=== PATIENT | female | born 1960 | race Caucasian/White ===

== ENCOUNTER 2017-04-02 10:24 | Observation (INO) | payer OTHER ==
[2017-04-02] MEDS ORDERED: oxyCODONE/Acetamin 5/325 MG* TAB ONE (11:16)
[2017-04-02 11:17] LABS: Hematocrit 40 % (35-47); Hemoglobin 13.4 g/dl (12.0-16.0); Mean Corpuscular HGB Conc 33 g/dl (31-36); Mean Corpuscular Hemoglobin 31 pg (27-31); Mean Corpuscular Volume 92 fL (80-97); Mean Platelet Volume 10 um3 (7.4-10.4); Red Blood Count 4.38 10^6/ul (4.0-5.4); Red Cell Distribution Width 14 % (10.5-15); White Blood Count 5.3 10^3/ul (3.5-10.8)
[2017-04-02] MEDS ORDERED: Scopolamine 1.5 mg* PATCH ONE (11:17)
[2017-04-02] MEDS ORDERED: LORazepam TAB(*) 1 MG ONE (11:17)
[2017-04-02] MEDS ORDERED: fentaNYL* 50 MCG/ML 5 ML VIAL (250 MCG VIAL) ONE ×2 (11:48→13:47)
[2017-04-02] MEDS ORDERED: Midazolam* 1 MG/ML 5 ML VIAL (5 MG) ONE ×2 (11:48→13:47)
[2017-04-02] MEDS ORDERED: Ketorolac INJ* 30 MG/ML 1 ML VIAL ONE (11:48)
[2017-04-02] MEDS ORDERED: Flumazenil* 0.1 MG/ML 5 ML MDV ONE (11:48)
[2017-04-02] MEDS ORDERED: Naloxone* 0.4 MG/ML 1 ML VIAL ONE (11:48)
[2017-04-02] MEDS ORDERED: Lidocaine 1% INJ* 10 MG/ML 30 ML SDV ONE (11:49)
[2017-04-02] MEDS ORDERED: Ondansetron INJ* 2 MG/ML VIAL ONE (11:49)
[2017-04-02] MEDS ORDERED: Iodixanol* (CONTRAST) 320 MG/ML 100 ML SDV ONE (11:49)
[2017-04-02] MEDS ORDERED: nitroGLYCERIN DRIP* 250 ML ONE (11:49)
[2017-04-02] MEDS ORDERED: Heparin 2 UNITS/ML IVPREMIX* 2,000 ML IV ONE (11:49)
[2017-04-02] MEDS ORDERED: Iohexol 350 (CONTRAST) 200 ML MDV IV ONE (12:00)
[2017-04-02] MEDS ORDERED: Scopolamine 1.5 mg* PATCH TRANSDERM ONE (12:00)
[2017-04-02] MEDS ORDERED: Ibuprofen TAB* 800 MG PO ONE (12:00)
[2017-04-02] MEDS ORDERED: LORazepam TAB(*) 1 MG PO ONE (12:00)
[2017-04-02] MEDS ORDERED: oxyCODONE/Acetamin 5/325 MG* TAB PO ONE (12:00)
[2017-04-02] MEDS ORDERED: Clindamycin 900 MG IVPREMIX(* 900 MG/50 ML SDV IV ONE (12:00)
[2017-04-02] MEDS ORDERED: HYDROmorphone* 1 MG/ML 1 ML SYR ONE (14:38)
[2017-04-02] MEDS ORDERED: HYDROmorphone PCA* 20 MG/20 ML PCA.SYRING PCA SCH (16:00)
--- NOTE | 2017-04-02 16:12 | PN ---
Progress Note - Progress Note Date of Service: 04/02/17 SOAP: Subjective: Pain and nausea well controlled. Patient states she feels "a little sore" in her left pelvis. Denies nausea. No emesis. Objective: [] Selected Entries 04/02/17 04/02/17 15:47 15:48 Temperature 97.4 F Pulse Rate 69 Respiratory 16 Rate Blood Pressure 126/85 (mmHg) Blood Pressure 98 Mean Vital Signs groin site soft Comment , pedal pulses are present. O2 Sat by Pulse 97 Oximetry NAD, Sleeping, but arousable to voice Abdomen and pelvis are soft, minimally tender to palpation. 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 Plan: 1. Standard Interventional Radiology post UFE pain and nausea control. 2. Strict bedrest until 1900 hours with RLE straight. 3. Groin, pulse and vitals checks according to protocol. 4. Outpatient medication regimen will include: * Scopolamine 1.5 mg transdermal to mastoid process: Remove current patch on 04/05/17 at 0900 hours and replace with new patch. (with one refill) * Zofran 4 mg PO Q 6 hours x 7 days, dispense #30 with one refill. * Toradol 10 mg PO Q 6 hours x 3 days, dispense # 15 with one refill. * Ibuprofen 800 mg PO Q 6 hours x 3 days: start after 3 days of Toradol. DO NOT MIX IBUPROFEN AND TORADOL * Percocet 5/325, take 1 or 2 tablets PO Q 6 hours PRN for breakthrough pain x 5 days, dispense #40. * Smooth Move Tea, purchase at [employer] and drink daily to control constipation.
[2017-04-02] MEDS: Ondansetron INJ* 2 MG/ML VIAL IV SCH (21:11)
[2017-04-02] MEDS: Ketorolac INJ* 15 MG/ML 1 ML VIAL IV PUSH SCH (22:08)
--- NOTE | 2017-04-02 23:27 | HP ---
CC: Dr. Thuy Armando; Dr. Yury Thao * HISTORY AND PHYSICAL: DATE OF ADMISSION: 04/02/17 PRIMARY CARE PHYSICIAN: Dr. Thuy Armando. ATTENDING PHYSICIAN: Dr. Yohana Alvarez * (dictated by Emmanuelle Nelson NP). CHIEF COMPLAINT: Uterine fibroids. HISTORY OF PRESENT ILLNESS: Ms. Ovalle is a 57-year-old female with past medical history significant for low back pain and uterine fibroids, who presented initially for consultation with Dr. Yury Thao for Interventional Radiology for a uterine fibroid embolization, who further reported that she was scheduled for uterine fibroid embolization 10 to 15 years ago, but the procedure was cancelled and she had not pursued rescheduling the procedure. The patient complained of abdominal discomfort exacerbated by pelvic pain and physical activity. She also experienced pelvic and low back pain after jogging. In addition, she reported pain when she first woke up in the morning in her pelvis and low back. While sitting for long periods of time, the patient experienced numbness in her lower extremities more severely affecting the left leg than the right leg. The patient underwent a pelvic ultrasound on February 23 showing at least 5 uterine fibroids with the largest measuring 12 x 11 x 11 cm. The patient presented today to [facility] for an elective uterine fibroid embolization with Dr. Yury Thao. Prior to the patient's hospitalization, she states that she has been in her usual health with the exception of pelvic and lower back pain. She denies any recent fever, chills, shortness of breath, chest pain, nausea, vomiting, or diarrhea, or urinary symptoms. PAST MEDICAL HISTORY: 1. Fasciculation syndrome. 2. Obesity. 3. Low back pain. 4. Leiomyoma of the uterus. 5. Remote history of concussion. PAST SURGICAL HISTORY: 1. Status post excision of a sebaceous cyst from the shoulder in 2013. 2. Status post jaw surgery. 3. Status post hand surgery at age 29. HOME MEDICATIONS: Include, multivitamin 1 tablet oral daily. ALLERGIES: IBUPROFEN causes GI upset. FAMILY HISTORY: The patient denies any family history of coronary artery disease or diabetes mellitus. The patient's father passed from lung cancer and the patient's mother passed from colon cancer. SOCIAL HISTORY: The patient denies tobacco use. She occasionally consumes alcohol. She denies recreational drug use. 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 Her daughter, Kelly Mason, will be her surrogate decision maker in the event she is unable to make decisions for herself. REVIEW OF SYSTEMS: I performed a 14-point review of systems. All the pertinent positives and negatives are mentioned in the history of present illness. The remaining review of systems are negative. PHYSICAL EXAMINATION GENERAL APPEARANCE: The patient is sleeping but easily arousable, pleasant, and appears to be in no acute distress. VITAL SIGNS: Temperature 98.0, heart rate 71, respiratory rate 16, O2 sat 98% on room air, blood pressure 130/78. HEENT: Normocephalic, atraumatic. Pupils are equal and reactive to light. Extraocular movements are intact. RESPIRATORY: There is no accessory muscle use and lungs are clear to auscultation bilaterally. CARDIOVASCULAR: Regular rate and rhythm. S1 and S2 present. There are no murmurs, rubs or gallops heard. ABDOMEN: Soft, nontender, nondistended. There are bowel sounds present x4. EXTREMITIES: There is no lower extremity edema. DP and PT pulses are 2+ and symmetric. MUSCULOSKELETAL: There is no clubbing or cyanosis noted. The patient exhibits good strength in all extremities. NEUROLOGIC: The patient is drowsy, but responds to voice, oriented x4. Cranial nerves II through XII are grossly intact. PSYCHOLOGICAL: The patient is calm and cooperative. SKIN: There are no rashes or abnormalities. The incision to the right groin is clean, dry and intact. The dressing to the right groin is clean, dry and intact. DIAGNOSTIC STUDIES/LABORATORY DATA: Preop labs from 03/30/17 show sodium 140, potassium 4.3, chloride 103, CO2 32, BUN 17, creatinine 0.82, and glucose 91. CBC from today shows white blood cell count 5.3, hemoglobin 13.4, hematocrit 40 , and platelet count 201. IMPRESSION: Ms. Ovalle is a 57-year-old female with past medical history significant for low back pain, pelvis pain, and leiomyoma of the uterus, who presented today for an elective uterine fibroid embolization with Dr. Yury Thao. She will be admitted as an observation. ASSESSMENT AND PLAN: 1. Uterine leiomyoma. The patient is status post uterine fibroid embolization today with Dr. Thao. Management per Dr. Thao. The patient will be given pain control via a Dilaudid [employer] and transitioned to oral pain medications. The patient will also be given antiemetics. She will be maintained on bed rest with her right lower extremity straight until 7 o'clock tonight, at which time she will be able to get up. She will have her urinary catheter removed at 1999 today. 2. Fluids, electrolytes, and nutrition. The patient will be on a clear liquid , advance as tolerated to regular diet. She will get IV hydration overnight. 3. Code status. Full code. 4. DVT prophylaxis. The patient is at moderate risk and will have SCDs. 5. Disposition. Observation. TIME SPENT: The time spent for this admission was approximately 60 minutes, greater than half of that was spent with the patient discussing medications, past medical history, and the events leading up to her arrival today and performing a physical examination. The case has been reviewed with the attending, Dr. Alvarez, who agrees with the plan of care. Reviewed by TAYLOR BURTON 04/03/17 1219 [id number]/[facility] #: [id number] JIM
[2017-04-03] MEDS: Ketorolac INJ* 15 MG/ML 1 ML VIAL IV PUSH SCH ×2 (03:48→09:39)
[2017-04-03] MEDS: Ondansetron INJ* 2 MG/ML VIAL IV SCH ×2 (03:49→09:39)
[2017-04-03] MEDS ORDERED: PROCHLORPERAZINE INJ 5 MG/ML 2 ML VIAL IV ONE (08:35)
[2017-04-03] MEDS ORDERED: Prenatal Vitamin TAB PO SCH (09:00)
[2017-04-03] MEDS ORDERED: Ondansetron TAB* 4 MG ONE (09:24)
[2017-04-03 09:42] VITALS: BP 134/87
[2017-04-03] MEDS ORDERED: Ketorolac TAB * 10 MG TAB PO SCH (10:00)
[2017-04-03] MEDS ORDERED: Ondansetron TAB* 4 MG PO SCH (10:00)
--- NOTE | 2017-04-03 11:30 | PN ---
Progress Note - Progress Note Date of Service: 04/03/17 SOAP: Subjective: Pain controlled. Episode of emesis this a.m. after drinking coffee. Has subsequently taken sips of water, crackers and yogurt without emesis. Wants to go home. + void. Ambulated with daughter around unit. Objective: [] Selected Entries 04/03/17 04/03/17 07:14 09:42 Temperature 98.1 F Temperature Oral Source Pulse Rate 95 Respiratory 16 Rate Blood Pressure 134/87 (mmHg) Blood Pressure 97 Mean O2 Sat by Pulse 97 Oximetry NAD, AAO x 3 Abdomen and pelvis are soft, minimally tender to palpation. Uterine fundus palpable ~10 cm above umbilicus Right CF arteriotomy site is soft, nontender, small area of ecchyomsis Dressing is CDI. Dressing changed at bedside. 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 Plan: Outpatient medication regimen will include: * Scopolamine 1.5 mg transdermal to mastoid process: Remove current patch on 04/05/17 at 0900 hours and replace with new patch. (with one refill) * Compazine 4 mg PO Q 6 hours x 7 days, dispense #30 with one refill. * Toradol 10 mg PO Q 6 hours x 3 days, dispense # 15 with one refill. * Ibuprofen 800 mg PO Q 6 hours x 3 days: start after 3 days of Toradol. DO NOT MIX IBUPROFEN AND TORADOL * Oxycodone 10 mg tablets take 1 PO Q 6 hours PRN for breakthrough pain x 5 days , dispense #30. * Smooth Move Tea, drink daily to control constipation.
--- NOTE | 2017-04-03 13:23 | PN ---
Subjective Date of Service: 04/03/17 Interval History: Ms. Ovalle states that she is feeling well this afternoon. She had one bout of nausea of drinking coffee this morning but has tolerated lunch well. She denies chest pain, SOB, nausea. She has minimal pain in her lower abdomen and in her back. Objective Active Medications: Lactated Ringer's (Lactated Ringers 1000 Ml Bag*) 1,000 mls @ 125 mls/hr IV PER RATE [facility] Ketorolac Tromethamine (Toradol Tab *) 10 mg PO Q6H [facility] Multivitamins ( Vitamin Tab*) 1 tab PO DAILY [facility] Ondansetron HCl (Zofran Tab*) 4 mg PO Q6H [facility] Pharmacy Profile Note (Scopolomine Patch Remove*) 1 note PATCH OFF ONCE ONE Vital Signs 04/02/17 04/02/17 04/02/17 15:23 15:28 15:32 Temperature 98.3 F Pulse Rate 72 71 Respiratory 16 16 Rate Blood Pressure 112/73 130/78 (mmHg) O2 Sat by Pulse 93 Oximetry 04/02/17 04/02/17 04/02/17 15:34 15:37 15:42 Temperature 98 F Pulse Rate 71 71 Respiratory 16 16 16 Rate Blood Pressure 130/78 126/85 (mmHg) O2 Sat by Pulse 90 95 Oximetry 04/02/17 04/02/17 04/02/17 15:47 16:06 16:08 Temperature 97.4 F 96.4 F Pulse Rate 69 68 Respiratory 16 16 16 Rate Blood Pressure 126/85 137/85 (mmHg) O2 Sat by Pulse 97 95 98 Oximetry 04/02/17 04/02/17 04/02/17 16:28 16:33 16:36 Temperature 96.8 F Pulse Rate 72 72 Respiratory 14 14 Rate Blood Pressure 134/83 134/83 (mmHg) O2 Sat by Pulse 97 97 Oximetry 04/02/17 04/02/17 04/02/17 16:37 16:46 17:01 Temperature 96.8 F Pulse Rate Respiratory 14 14 14 Rate Blood Pressure (mmHg) O2 Sat by Pulse 97 Oximetry 04/02/17 04/02/17 04/02/17 17:29 17:53 17:57 Temperature 97.1 F 97.1 F Pulse Rate 75 78 Respiratory 16 16 16 Rate Blood Pressure 128/78 134/83 (mmHg) O2 Sat by Pulse 96 98 96 Oximetry 04/02/17 04/02/17 04/02/17 18:30 18:42 18:52 Temperature 97.4 F Pulse Rate 74 81 Respiratory 16 16 16 Rate Blood Pressure 134/83 139/85 (mmHg) O2 Sat by Pulse 96 93 93 Oximetry 04/02/17 04/02/17 04/02/17 19:59 20:45 21:08 Temperature 97.2 F 98.1 F Pulse Rate 83 83 Respiratory 16 16 Rate Blood Pressure 151/91 131/75 (mmHg) O2 Sat by Pulse 99 96 93 Oximetry 04/02/17 04/02/17 04/02/17 22:08 22:11 23:18 Temperature 97.3 F 97.5 F Pulse Rate 84 88 Respiratory 16 16 14 Rate Blood Pressure 148/91 127/79 (mmHg) O2 Sat by Pulse 99 100 Oximetry 04/03/17 04/03/17 04/03/17 01:42 04:18 06:42 Temperature 97.8 F Pulse Rate 88 Respiratory 16 16 16 Rate Blood Pressure 134/74 (mmHg) O2 Sat by Pulse 96 96 99 Oximetry 04/03/17 04/03/17 07:14 09:42 Temperature 98.1 F Pulse Rate 95 Respiratory 15 16 Rate Blood Pressure 134/87 (mmHg) O2 Sat by Pulse 97 Oximetry Oxygen Devices in Use Now: None Appearance: Female lying in bed in NAD Eyes: No Scleral Icterus Ears/Nose/Mouth/Throat: Mucous Membranes Moist Neck: Trachea Midline Respiratory: Symmetrical Chest Expansion and Respiratory Effort, Clear to Auscultation Cardiovascular: NL Sounds; No Murmurs; No JVD, No Edema Abdominal: NL Sounds; No Tenderness; No Distention Lymphatic: No Cervical Adenopathy Extremities: No Edema Skin: No Rash or Ulcers Neurological: Alert and Oriented x 3, NL Muscle Strength and Tone Nutrition: Taking PO's Result Diagrams: 04/02/17 11:00 Assess/Plan/Problems-Billing Assessment: Ms. Ovalle is a 57 yo female with a PMH of uterine leiomyoma who was admitted on 04/02/17 after a uterine fibroid artery embolization with Dr. Thao. - Patient Problems (1) Uterine fibroid Comment: - S/P uterine fibroid artery embolization. - Doing well today, tolerating oral intake and resting comfortably, - Management per Dr. Thao with prescriptions from pain meds and anti-emetics. Status and Disposition: OBV. Discharge to home.
--- NOTE | 2017-04-03 14:10 | DS ---
CC: Dr. Thuy Armando * DISCHARGE SUMMARY: DATE OF ADMISSION: 04/02/17 DATE OF DISCHARGE: 04/03/17 PRIMARY CARE PHYSICIAN: Dr. Thuy Armando. ATTENDING PHYSICIAN: Dr. Benoit Jimenez * (dictation provided by Leonie Jones NP ) PRIMARY DIAGNOSIS: Uterine fibroids, status post uterine fibroid artery embolization. SECONDARY DIAGNOSES: 1. Fasciculation syndrome. 2. Obesity. 3. Low back pain. 4. Leiomyoma of the uterus. 5. Remote history of concussion. PAST SURGICAL HISTORY: 1. Status post excision of a sebaceous cyst in the shoulder in 2013. 2. Status post jaw surgery. 3. Status post hand surgery at age 29. MEDICATIONS: At the time of discharge are: 1. Scopolamine patch q.72 hours. 2. Compazine 4 mg p.o. q.6 hours x7 days. 3. Toradol 10 mg p.o. q.6 hours x3 days. 4. Ibuprofen 800 mg p.o. q.6 hours x3 days. 5. Oxycodone 10 mg p.o. q.6 hours p.r.n. for breakthrough pain x5 days. HOSPITAL COURSE: Ms. Ovalle is a 57-year-old female with a past medical history of uterine leiomyoma causing pelvic pain, who presented to the hospital for an elective uterine fibroid artery embolization, Dr. Thao. Please see the dictated H and P from Emmanuelle Asencio for complete details. In brief, the patient underwent the procedure on 04/02/17. Ms. Ovalle has been doing well in the postprocedure period. She was initially nauseous this morning, but that has resolved and she has tolerated her lunch well. She has minimal pain at this time on her current medication regimen. Plans are for her to be discharged to home to follow up with Dr. Thao in the outpatient setting. DISPOSITION: To home. DIET: Regular. ACTIVITY: As tolerated. Please see discharge instructions. The patient should avoid strenuous exercise and activity for 1 week and a pelvic rest for 4 weeks. FOLLOWUP PLANS: Please follow up with Dr. Thao 1 week from time of discharge. TIME SPENT: Approximately 60 minutes were spent in the discharge of this patient, more than half the time spent with the patient at the bedside reviewing the events leading up to this hospitalization, performing the physical examination, and reviewing the plan of care. LEONIE JONES NP [id number]/[facility] #: [id number] JIM
[2017-04-05] MEDS ORDERED: Scopolomine PATCH Remove* 1 NOTE MISC PATCH OFF ONE (12:00)
--- NOTE | 2017-04-05 17:56 | RAD ---
CPT II Codes: 6045F Procedure(s) performed: * Pelvic arteriogram including the lower abdominal aorta, bilateral iliac arteries including the proximal portions of the superficial femoral arteries and femoral profundi. * Catheter arteriography of the bilateral uterine arteries. * Catheter embolization of the bilateral uterine arteries. Date of service: April 02, 2017 Indication for procedure: Pelvic pain and distention in the presence of large uterine fibroids Comparison: Most recent pelvic ultrasound dated February 23, 2017 that showed multiple uterine fibroids, the largest measuring up to 9.8 cm in greatest dimension Contrast: 150 mL of Omnipaque 350 Fluoroscopy Time: 40.3 minutes Vessels Accessed: Percutaneous access was obtained with ultrasound guidance in the right common femoral artery in the retrograde. Catheter arteriography, with the catheter tip located within the lumen of the following arteries, was performed at the Aorta, Bilateral Internal Iliac Arteries, Bilateral Uterine Arteries. Anesthesia: Conscious sedation with IV Fentanyl and Versed as well as local 1% lidocaine injected locally at the arteriotomy site. Conscious sedation time: Timeout: 1207 hours Case end: 1451 hours Total conscious sedation time: 2 hours and 44 minutes Additional medications: * 350 mcg IA nitroglycerin injected intermittently throughout the course of the procedure to alleviate arterial spasm. * Intra-arterial Toradol, 15 mg injected into each uterine artery, for a total of 30 mg intra-arterial.. * Intravenous Toradol, 30 mg. * Transdermal scopolamine patch 1.5 mg applied to the mastoid process prior to the procedure beginning. * A total of 4 mg Zofran was administered intravenously. * Dilaudid 1 mg given towards the conclusion of the procedure PROCEDURE NOTE AND INTRAPROCEDURAL IMAGING FINDINGS: Immediately prior to the procedure the patient signed consent after thoroughly discussing all risks and benefits. The patient was positioned on the fluoroscopy table in the supine position and the bilateral groins were shaved, prepped and draped in standard sterile fashion. Using fluoroscopic imaging the location of the right common femoral head was marked externally with a skin marker on the patient's groin. Utilizing sonographic guidance and palpation the right common femoral artery was cannulated overlying the right femoral head with an 21-gauge needle. An ultrasound image was saved. A microwire was slowly and smoothly advanced to the aortic bifurcation under fluoroscopic imaging. No buckling of the wire was visualized to indicate dissection. Over the wire a 5-Irish catheter was advanced into the artery, the inner stiffener removed and the microwire was replaced with a 0.035" Bentsen wire which was advanced into the aorta. Finally the 5 Irish catheter was exchanged for a 5 Irish sidearm sheath. Utilizing a Bentson wire and 5-Irish Contra 2 flush catheter the left common iliac artery was accessed. Over the wire the Contra 2 was exchanged for a 5 Irish angled tip catheter and this was used to access the left internal iliac artery. With the tip of the catheter in the proximal most portion of the left internal iliac artery, angiography was performed to detail the branches of the left internal iliac artery which had depicted the uterine artery providing blood flow to the patient's uterine fibroid. Arteriograms in multiple oblique projections were performed to best discern the branch point of the uterine artery. Once the uterine artery was identified, a Renegade High-flow microcatheter and microwire were advanced into the parent catheter and, in conjunction with contrast angiography, the uterine artery was identified and selected with the micro catheter. Prior to embolization, contrast injection into the horizontal portion of the uterine artery demonstrated no large, obvious collateral blood flow to the ovary or a definite cervicovaginal branch descending inferiorly. Intra-arterial nitroglycerin was injected intermittently to alleviate arterial spasm. Under fluoroscopic control approximately 1 vial Embozene 500 micron, 1 vial 500-700 micron Embospheres, one vial Embozenes 700 microns and 1 vial Embospheres 700-900 microns were slowly injected into the uterine artery to near complete stasis. [place] through the embolization 15 mg of Toradol was injected intra-arterially. The microcatheter was pulled back into the more proximal descending portion of the uterine artery and contrast angiography depicted near complete stasis of the uterine artery. The microcatheter was removed and replaced with an 0.035" guidewire. A 5-Irish Merit reverse curve catheter was advanced over the wire, the loop was formed in the aorta and the catheter and wire system were drawn into the ipsilateral right common iliac artery and into the right internal iliac artery. Contrast angiography with the tip of the 5-Irish catheter in the proximal most portion of the right internal iliac artery demarcated the right uterine artery and multiple oblique projections were obtained to best depict the origin of the uterine artery. Once the uterine artery was identified, a Renegade High-flow microcatheter and microwire were advanced into the parent catheter and, in conjunction with contrast angiography, the uterine artery was identified and selected with the micro catheter. Prior to embolization, contrast injection into the horizontal portion of the uterine artery demonstrated no large, obvious collateral blood flow to the ovary or a definite cervicovaginal branch descending inferiorly. Intra-arterial nitroglycerin was injected intermittently to alleviate arterial spasm. Under fluoroscopic control approximately1 vial 500 micron Embozenes, 1 vial of 500-700 micron Embospheres and 1 vial 700-900 micron Embospheres were slowly injected into the uterine artery to near complete stasis. [place] through the embolization 15 mg of Toradol was injected intra-arterially. The microcatheter was pulled back into the more proximal descending portion of the uterine artery and contrast angiography depicted near complete stasis of the uterine artery. The microcatheter and wire were removed and the 0.035" wire was readvanced to the tip of the catheter. The system was then advanced towards the aorta. The contralateral left common iliac artery was accessed and the catheter and wire were removed. The access sheath was removed and pressure was held at the common femoral arteriotomy for approximately 20 minutes. There were no signs of bleeding at the right groin access site and the site was dressed with sterile gauze and Tegaderm. The patient tolerated the procedure well and was transferred to the short stay recovery unit in stable condition for routine overnight observation and pain and nausea control. SUMMARY OF PROCEDURE, IMAGING FINDINGS AND INTERVENTIONS PERFORMED: 1. Diagnostic studies performed: * Arterial access was obtained at the right common femoral artery in the retrograde direction (i.e. towards the heart) with ultrasound guidance. A sonographic image was recorded. * Diagnostic catheter angiography (necessary to perform the appropriate interventions) was performed with the catheter tip in the aorta, bilateral common iliac arteries, bilateral internal iliac arteries and bilateral uterine arteries. * Catheter arteriography was performed of the lower abdominal aorta, bilateral iliac arterial system and specifically the bilateral uterine arteries. 2. Interpretation of diagnostic studies performed: * Enlarged bilateral uterine arteries were seen filling the patient's massively enlarged fibroid uterus. 3. Surgical interventions performed: * Near stasis embolization of the bilateral uterine arteries utilizing a total of 2 vials 500 um Embozenes, 2 vials 500-700 um Embospheres, 1 vial 700 um Embozenes and 2 vials 700-900 um Embospheres.. 4. Interpretation of interventions performed: * Final arteriography demonstrated near complete stasis of the bilateral uterine arteries.. PLAN: 1. The patient will be admitted to short stay surgical unit for routine overnight observation including pain and nausea control. 2. Outpatient clinical and imaging follow-up according to the Interventional Radiology protocol.
== END 2017-04-03 14:20 | disposition home or self-care (01) ==
LOC: CHICATH 10:24 → SSU 15:06
PROVIDERS: ADMIT Hospitalist; ATTEND Internal Medicine
DX: D25.9 Leiomyoma of uterus, unspecified (principal); R10.2 Pelvic and perineal pain; R25.3 Fasciculation; E66.9 Obesity, unspecified; M54.5 Low back pain; Z79.899 Other long term (current) drug therapy
CPT/HCPCS: 36415; 37243; 76937; 84702; 85025; 85730; 96374; 99156; 99157; A9270-GY; C1725; C1884; C1887; C1894; G0378; J0780; J1170; J1644; J1885; J2001; J2250; J2270; J2310; J2405; J3010